=== PATIENT | female | born 1970 | race African-American/Black ===

== ENCOUNTER → 2017-05-21 | Outpatient (CLI) | payer OTHER ==
[2017-05-21 16:26] LABS: HGB 13.2 gm/dL (11.4-16.0); MCH 27.4 pg (25.0-35.0); MCHC 30.8 g/dL (31.0-37.0); MCV 89.1 fL (80.0-100.0); Mean Platelet Volume 7.8; Platelet Count 208 k/uL (150-450); RBC 4.82 m/uL (3.80-5.40); RDW 14.6 % (11.5-15.5); WBC 4.9 k/uL (3.8-10.6)
[2017-05-21 16:35] LABS: INR 1.1 (<1.2); Partial Thromboplastin Time 24.2 sec (22.0-30.0); Prothrombin Time 10.4 sec (9.0-12.0)
[2017-05-21 16:52] LABS: ALT 36 U/L (9-52); AST 24 U/L (14-36); Albumin 4.4 g/dL (3.5-5.0); Alkaline Phosphatase 99 U/L (38-126); Anion Gap 11 mmol/L; Blood Urea Nitrogen 16 mg/dL (7-17); Calcium 9.7 mg/dL (8.4-10.2); Carbon Dioxide 28 mmol/L (22-30); Chloride 104 mmol/L (98-107); Cholesterol 251 mg/dL (<200); Glucose 85 mg/dL (74-99); HDL Cholesterol 41 mg/dL (40-60); LDL Cholesterol,Calculated 183 mg/dL (0-99); Magnesium 1.9 mg/dL (1.6-2.3); Potassium 4.4 mmol/L (3.5-5.1); Sodium 143 mmol/L (137-145); Total Bilirubin 0.3 mg/dL (0.2-1.3); Total Protein 8.1 g/dL (6.3-8.2); Triglycerides 135 mg/dL (<150)
[2017-05-22 01:07] LABS: Iron Saturation 20.61 (12.00-45.00)
[2017-05-22 01:33] LABS: Folate, Serum 16.1 ng/mL
[2017-05-22 03:41] LABS: Hemoglobin A1C 7.2 % (4.0-6.0)
[2017-05-22 05:14] LABS: Parathyroid Hormone Intact 64.2 pg/mL (14.0-72.0)
[2017-05-22 15:04] LABS: Vitamin A 36 ug/dL (38-106)
[2017-05-22 15:26] LABS: Zinc, Serum 100 ug/dL (60-130)
[2017-05-23 03:26] LABS: Vitamin B1 47 ug/L (38-122)
[2017-05-24 11:58] LABS: Selenium 140 mcg/L (63-160)
== END | disposition home or self-care (01) ==
LOC: LABWHC1 15:39
PROVIDERS: ATTEND Surgery Plastic and Reconstructive Surgery
DX: E66.01 Morbid (severe) obesity due to excess calories (principal); E21.1 Secondary hyperparathyroidism, not elsewhere classified; D50.8 Other iron deficiency anemias; K90.89 Other intestinal malabsorption; E55.9 Vitamin D deficiency, unspecified; K90.9 Intestinal malabsorption, unspecified; T56.894A Toxic effect of other metals, undetermined, initial encounter; K74.1 Hepatic sclerosis
CPT/HCPCS: 36415; 80053; 80061; 82306; 82525; 82607; 82728; 82746; 83036; 83540; 83550; 83735; 83970; 84100; 84134; 84255; 84425; 84443; 84590; 84630; 85027; 85610; 85730

== ENCOUNTER → 2020-11-25 | Outpatient (CLI) | payer OTHER ==
[2020-11-26 01:23] LABS: HCT 41.6 % (37.2-46.3); HGB 12.9 g/dL (12.0-15.0); MCH 26.5 pg (27.0-32.0); MCV 85.4 fL (80.0-97.0); Platelet Count 231 X 10*3/uL (140-440); RBC 4.87 X 10*6/uL (4.10-5.20); RDW 14.4 % (11.5-14.5); WBC 5.42 X 10*3/uL (4.50-10.00)
[2020-11-26 03:38] LABS: Partial Thromboplastin Time 25.8 sec (23.5-31.0); Prothrombin Time 10.9 sec (9.9-11.9)
[2020-11-26 04:38] LABS: Hemoglobin A1C 7.6 % (4.0-6.0)
[2020-11-26 06:33] LABS: Ferritin 90.8 ng/mL (10.0-291.0)
[2020-11-26 15:02] LABS: Zinc, Serum 97 ug/dL (60-130)
[2020-11-26 15:20] LABS: % Iron Saturation 17.03 (12.00-45.00); African American GFR (CKD) 75.5 (60.0-200.0); Albumin/Globulin Ratio 1.47 (1.60-3.17); Anion Gap 13.6 mmol/L (4.00-12.00); Calcium 9.6 mg/dL (8.7-10.3); Carbon Dioxide 22.4 mmol/L (21.6-31.8); Chol/HDL Ratio 4.35; Globulin 3.4 g/dL (1.6-3.3); Magnesium 1.8 mg/dL (1.5-2.4); Non-African American GFR(CKD) 65.2 (60.0-200.0); Phosphorus 4.4 mg/dL (2.4-5.1); Total Bilirubin 0.3 mg/dL (0.3-1.2); Total Protein 8.4 g/dL (6.2-8.2)
[2020-11-27 10:52] LABS: Anabasine Urine <2.0 ng/mL (<2.0)
== END | disposition home or self-care (01) ==
LOC: LABPAT 16:25
PROVIDERS: ATTEND Surgery Plastic and Reconstructive Surgery
DX: N19 Unspecified kidney failure (principal); E89.1 Postprocedural hypoinsulinemia; E55.9 Vitamin D deficiency, unspecified; E66.01 Morbid (severe) obesity due to excess calories; D50.8 Other iron deficiency anemias; K90.89 Other intestinal malabsorption; K74.1 Hepatic sclerosis; K50.90 Crohn's disease, unspecified, without complications
CPT/HCPCS: 84255; 84134; 84425; 80061; 80053; 82607; 82728; 82525; 82746; 83540; 83550; 83735; 84100; 84443; 84590; 84630; 85027; 85610; 85730; 82306; 83970; 83036; 80307; 93005; 36415; G0480; G0482; 80323

== ENCOUNTER → 2021-05-26 | Outpatient (CLI) | payer OTHER | END | disposition home or self-care (01) | LOC: LABPAT 16:23 | PROVIDERS: ATTEND Surgery Plastic and Reconstructive Surgery | DX: Z20.822 Contact with and (suspected) exposure to COVID-19 (principal) ==

== ENCOUNTER → 2021-05-30 | Day surgery (SDC) | payer OTHER ==
[2021-05-25 13:34] VITALS: BMI 40.4
[~2021-05-30] MED LIST: GLYCOPYRROLATE 0.2 MG/ML 2 ML VIAL ONE; LACTATED RINGERS 1,000 ML IV SCH; LIDOCAINE 1% (10MG/ML) FOR IV START INTRADERMA PRN; LIDOCAINE 1% INJ 10MG/ML (20 ML MDV) ONE; PROPOFOL 10 MG/ML 20 ML VIAL IV ONE
--- NOTE | 2021-05-30 07:44 | P.GSHP ---
History of Present Illness H&P Date: 05/30/21 CHIEF COMPLAINT: GERD HISTORY OF PRESENT ILLNESS: The patient is a 51-year-old female who presents reports gastroesophageal reflux disease. Upper endoscopy was offered for further evaluation and management. PAST MEDICAL HISTORY: Please see list. PAST SURGICAL HISTORY: Please see list. MEDICATIONS: Please see list. ALLERGIES: Please see list. SOCIAL HISTORY: No illicit drug use FAMILY HISTORY: No reports of Crohn disease or ulcerative colitis. REVIEW OF ORGAN SYSTEMS: CONSTITUTIONAL: No reports of fevers or chills. GI: Denies any blood in stools or constipation. PHYSICAL EXAM: VITAL SIGNS: Stable GENERAL: Well-developed and pleasant in no acute distress. HEENT: No scleral icterus. Extraocular movements grossly intact. Moist buccal mucosa. NECK: Supple without lymphadenopathy. CHEST: Unlabored respirations. Equal bilateral excursions. CARDIOVASCULAR: Regular rate and rhythm. Distal 2+ pulses. ABDOMEN: Soft, nondistended. MUSCULOSKELETAL: No clubbing, cyanosis, or edema. ASSESSMENT: 1. Gastroesophageal reflux disease PLAN: 1. Recommend proceeding with an upper endoscopy Past Medical History Past Medical History: Diabetes Mellitus, GERD/Reflux, Sleep Apnea/CPAP/BIPAP, Vascular Disorder Additional Past Medical History / Comment(s): CPAP used at home, frequent leg swelling, neuropathy History of Any Multi-Drug Resistant Organisms: None Reported Past Surgical History: Orthopedic Surgery Additional Past Surgical History / Comment(s): thumb surg. Past Anesthesia/Blood Transfusion Reactions: No Reported Reaction Additional Past Anesthesia/Blood Transfusion Reaction / Comment(s): No previous surgical history. Smoking Status: Never smoker, Second hand smoke exposure Medications and Allergies Home Medications Medication Instructions Recorded Confirmed Type Aspirin [Adult Low Dose Aspirin EC] 81 mg PO DAILY 11/17/20 05/25/21 History Atorvastatin [Lipitor] 40 mg PO DAILY 11/17/20 05/25/21 History Cholecalciferol [Vitamin D3 (25 50 mcg PO DAILY 11/17/20 05/25/21 History Mcg = 1000 Iu)] Dulaglutide [Trulicity] 3 mg SQ FR 11/17/20 05/25/21 History Insulin Glargine [Lantus] 10 unit SQ HS 11/17/20 05/25/21 History Spironolactone [Aldactone] 100 mg PO DAILY 11/17/20 05/25/21 History metFORMIN HCL [Glucophage] 1,000 mg PO BID 11/17/20 05/25/21 History Gabapentin [Neurontin] 300 mg PO BID 05/25/21 05/25/21 History Allergies Allergy/AdvReac Type Severity Reaction Status Date / Time hydrochlorothiazide Allergy Itching Verified 05/25/21 12:51
[2021-05-30 08:17] VITALS: TEMP 97.2
[2021-05-30 08:21] LABS: Glucose,Whole Blood 114 mg/dL (75-99)
--- NOTE | 2021-05-30 08:48 | P.PCN ---
Date of Procedure: 05/30/21 Description of Procedure: PREOPERATIVE DIAGNOSIS: Gastroesophageal reflux disease. Morbid obesity. POSTOPERATIVE DIAGNOSIS: Morbid obesity. Gastritis. Gastroesophageal reflux disease. Gastroparesis OPERATION: Esophagogastroduodenoscopy with biopsies along antrum. SURGEON: Sydney Comer MD ANESTHESIA: MAC. INDICATIONS: The patient is a 51-year-old female who presents with a history of reflux disease. Benefits and risks of the procedure were described. Informed consent was obtained. DESCRIPTION: The patient was brought into the endoscopy suite and laid in the left lateral decubitus position. An Olympus gastroscope was passed along the posterior oropharynx down to the distal esophagus where the squamocolumnar junction was encountered at 38 cm from the incisors. The stomach was entered and no bile reflux was found. Additional findings are listed below. Biopsies with cold forceps were obtained of the antrum. The first through third portion of the duodenum was examined. Retroflexion of the scope confirmed Hill grade 2 lower esophageal valve. The squamocolumnar junction demonstrated LA grade A erosive esophagitis. The stomach was desufflated. The patient tolerated the procedure well. FINDINGS: Squamocolumnar junction 38 cm from the incisors. Diaphragmatic hiatus at 38 cm. Hill grade 2 lower esophageal valve. LA grade A erosive esophagitis. No active duodenitis. Chronic gastritis Moderate food along stomach for gastroparesis RECOMMENDATIONS: 1. Trial of Reglan 10 mg 3 times daily for gastroparesis Plan - Discharge Summary Discharge Rx Participant: No New Discharge Prescriptions: New Metoclopramide [Reglan] 10 mg PO ACHS #30 tab Continue metFORMIN HCL [Glucophage] 1,000 mg PO BID Aspirin [Adult Low Dose Aspirin EC] 81 mg PO DAILY Cholecalciferol [Vitamin D3 (25 Mcg = 1000 Iu)] 50 mcg PO DAILY Gabapentin [Neurontin] 300 mg PO BID Insulin Glargine [Lantus Vial] 10 unit SQ HS Dulaglutide [Trulicity] 3 mg SQ FR Spironolactone [Aldactone] 100 mg PO DAILY Atorvastatin [Lipitor] 40 mg PO DAILY Discharge Medication List Aspirin [Adult Low Dose Aspirin EC] 81 mg PO DAILY 11/17/20 [History] Atorvastatin [Lipitor] 40 mg PO DAILY 11/17/20 [History] Cholecalciferol [Vitamin D3 (25 Mcg = 1000 Iu)] 50 mcg PO DAILY 11/17/20 [History] Dulaglutide [Trulicity] 3 mg SQ FR 11/17/20 [History] Insulin Glargine [Lantus Vial] 10 unit SQ HS 11/17/20 [History] Spironolactone [Aldactone] 100 mg PO DAILY 11/17/20 [History] metFORMIN HCL [Glucophage] 1,000 mg PO BID 11/17/20 [History] Gabapentin [Neurontin] 300 mg PO BID 05/25/21 [History] Metoclopramide [Reglan] 10 mg PO ACHS #30 tab 05/30/21 [Rx] [facility]Ref[facility] [place] [place] [facility] [place] [facility] Patient Instructions/Handouts: *[facility] - (Anesthesia) Endoscopy Discharge Instructions, Gastroparesis (DC) Discharge Disposition: HOME SELF-CARE
[2021-05-30 08:53] LABS: Glucose,Whole Blood 112 mg/dL (75-99)
[2021-05-30 08:53] LABS: Glucose,Whole Blood 107 mg/dL (75-99)
[2021-05-30 09:00] VITALS: BP 106/73; PULSE 100; RESP 16
== END | disposition home or self-care (01) ==
LOC: ORWHC2ENDO 07:33
PROVIDERS: ATTEND Surgery Plastic and Reconstructive Surgery
DX: K29.50 Unspecified chronic gastritis without bleeding (principal); K22.10 Ulcer of esophagus without bleeding; K21.9 Gastro-esophageal reflux disease without esophagitis; G47.33 Obstructive sleep apnea (adult) (pediatric); E78.5 Hyperlipidemia, unspecified; Z77.22 Contact with and (suspected) exposure to environmental tobacco smoke (acute) (chronic); E11.40 Type 2 diabetes mellitus with diabetic neuropathy, unspecified; Z97.2 Presence of dental prosthetic device (complete) (partial); E66.01 Morbid (severe) obesity due to excess calories; Z68.41 Body mass index [BMI] 40.0-44.9, adult; Z79.899 Other long term (current) drug therapy; Z79.84 Long term (current) use of oral hypoglycemic drugs; Z79.82 Long term (current) use of aspirin; Z79.4 Long term (current) use of insulin; M79.89 Other specified soft tissue disorders; Z88.8 Allergy status to other drugs, medicaments and biological substances
CPT/HCPCS: 88305; 88342; 43239; J2001; J2704

== ENCOUNTER → 2021-06-22 | Outpatient (CLI) | payer OTHER ==
[2021-06-22 14:22] VITALS: BP 104/67; PULSE 88; RESP 16; TEMP 97.2; BMI 42.2
--- NOTE | 2021-06-22 14:41 | P.BASOAP ---
Subjective Progress Note Date: 06/22/21 DATE OF SERVICE: 06/22/2021 CHIEF COMPLAINT: Morbid obesity HISTORY OF PRESENT ILLNESS: Victoria Hanna is a 50-year-old female who comes with lifelong morbid obesity. As a result of her morbid obesity, she has developed insulin dependent diabetes, sleep apnea, and hypertensive heart disease. She in medical supervised weight loss. She finished 6 months of her supervised weight loss. She was seeing Dr. Marshall to control her diabetes. She is looking into the sleeve. Currently, her psychology assessment is pending. 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 At height of 5 feet 0 inches, her ideal body weight is 127 pounds. She was 235 pounds. Her body mass index is 46.0 Today she comes in 216 pounds from 235 pounds, 8 months ago. She has lost 20 pounds in 8 months. She is 89 pounds overweight. PAST MEDICAL HISTORY: 1. Morbid obesity due to excess calories 2. Body mass index of 46.0, initial 3. Diabetes type 2, insulin dependent 4. Hyperlipidemia 5. Hypertensive heart disease 6. Sleep apnea. PAST SURGICAL HISTORY: 1. No abdominal surgery HOME MEDICATIONS: Home Medications Medication Instructions Recorded Confirmed Aspirin [Adult Low Dose Aspirin EC] 81 mg PO DAILY 11/17/20 06/23/21 Atorvastatin [Lipitor] 40 mg PO DAILY 11/17/20 06/23/21 Cholecalciferol [Vitamin D3 (25 50 mcg PO DAILY 11/17/20 06/23/21 Mcg = 1000 Iu)] Dulaglutide [Trulicity] 3 mg SQ FR 11/17/20 06/23/21 Insulin Glargine [Lantus Vial] 10 unit SQ HS 11/17/20 06/23/21 Spironolactone [Aldactone] 100 mg PO DAILY 11/17/20 06/23/21 metFORMIN HCL [Glucophage] 1,000 mg PO BID 11/17/20 06/23/21 Gabapentin [Neurontin] 300 mg PO BID 05/25/21 06/23/21 Previous Rx's Medication Instructions Recorded Metoclopramide [Reglan] 10 mg PO ACHS #30 tab 05/30/21 Amoxicillin 1,000 mg PO Q12HR #56 cap 07/13/21 Clarithromycin [Biaxin] 500 mg PO Q12HR #28 tablet 07/13/21 Omeprazole [PriLOSEC] 40 mg PO DAILY #90 cap 07/13/21 ALLERGIES: Allergies Allergy/AdvReac Type Severity Reaction Status Date / Time hydrochlorothiazide Allergy Itching Verified 05/30/21 07:56 SOCIAL HISTORY: No past tobacco use. FAMILY HISTORY: No family history of ulcerative colitis disease or Crohn's disease. Family history of morbid obesity. No lupus in the family. No reports of stomach or esophageal cancer. REVIEW OF ORGAN SYSTEMS: CONSTITUTIONAL: At height of 5 feet 0 inches, her ideal body weight is 127 pounds. She comes in 235 pounds. Her body mass index is 46.0 She is 108 pounds overweight. HEENT: Denies any active troubles with vision or hearing. ENDOCRINE: Has diabetes. No hypothyroidism. Takes insulin. CARDIOVASCULAR: Past reports of palpitations or heart attacks or chest pain. Has hypertensive heart disease. Has hyperlipidemia RESPIRATORY: Has daytime somnolence. Has asthma. Has chronic obstructive pulmonary disease. Has sleep apnea. GASTROINTESTINAL: Denies any bright red blood per rectum. No diarrhea. No constipation. Has gastroesophageal reflux disease. GENITOURINARY: Denies bladder urgency. No recent blood in urine MUSCULOSKELETAL: Has lower back pain and joint pain. Has osteoarthritis of the knees. NEURO: No headaches. No seizure disorders. PSYCH: Has depression. No suicidal ideation. RHEUMATOLOGIC: No lupus. No rheumatoid arthritis. HEMATOLOGIC: Denies any abnormal bleeding or bruising. SKIN: No rash. No skin cancer. PHYSICAL EXAM: VITAL SIGNS: Height 5 foot 0 inches, weight 216 pounds. BMI 42.2 Vital Signs Temp 97.2 F L 06/22/21 14:00 Pulse 88 06/22/21 14:00 Resp 16 06/22/21 14:00 BP 104/67 06/22/21 14:00 Pulse Ox GENERAL: Well-developed in no acute distress. HEENT: No scleral icterus. Extraocular movements grossly intact. Hears conversational speech. No nasal drainage. NECK: Supple without lymphadenopathy. CHEST: Nonlabored respirations with equal bilateral excursions. CARDIOVASCULAR: Regular rate and regular rhythm. Distal 2+ pulses. ABDOMEN: Obese, soft, nontender, nondistended. MUSCULOSKELETAL: No clubbing, cyanosis. NEURO: No focal or lateralizing signs. Cranial nerves 2 through 12 grossly within normal limits. PSYCH: Appropriate affect. Alert and oriented to person, place and time. SKIN: Good skin turgor. Well perfused. LABS: Reviewed. Hgb A1c 7.6% elevated. HDL low. EGD FINDINGS: Squamocolumnar junction 38 cm from the incisors. Diaphragmatic hiatus at 38 cm. Hill grade 2 lower esophageal valve. LA grade A erosive esophagitis. No active duodenitis. Chronic gastritis Moderate food along stomach for gastroparesis EKG: Normal sinus rhythm Final Pathologic Diagnosis STOMACH, ANTRUM, BIOPSY: Moderate chronic and active gastritis. Immunostain with appropriate controls positive for Helicobacter organisms. ASSESSMENT: 1. Morbid obesity due to excess calories 2. Body mass index of 46.0, initial to 42.2 3. Diabetes type 2, insulin dependent 4. Hyperlipidemia 5. Hypertensive heart disease 6. Sleep apnea. 7. Gastroparesis 8. H. pylori gastritis PLAN: 1. Treatment for new H. pylori gastristitis prescribed. Will need re-check for clearance of infection. 2. Recommend completion of medical supervised weight loss. 3. She is pending psych assessment per insurance requirements. 4. She is looking into the sleeve without any overt contra-indications to a sleeve. 5. She has gastroparesis which would require prolonged liquid diet pre-op Objective - Vital Signs Vital signs: Vital Signs Temp 97.2 F L 06/22/21 14:00 Pulse 88 06/22/21 14:00 Resp 16 06/22/21 14:00 BP 104/67 06/22/21 14:00 Pulse Ox Intake & Output 06/21/21 06/22/21 06/22/21 18:59 06:59 18:59 Weight 97.976 kg Assessment/Plan Plan: Date: 06/22/21 Initial Weight: 106.793 kg Initial BMI: 45.9 Current Weight: 97.976 kg Current BMI: 42.2 Type of Surgery: Total Volume in Band: Previous Volume: Volume Removed: Volume Added: Band Size:
== END ==
LOC: BARWHC3 13:37
PROVIDERS: ATTEND Surgery Plastic and Reconstructive Surgery
DX: E66.01 Morbid (severe) obesity due to excess calories (principal); E78.5 Hyperlipidemia, unspecified; I11.9 Hypertensive heart disease without heart failure; G47.30 Sleep apnea, unspecified; E11.43 Type 2 diabetes mellitus with diabetic autonomic (poly)neuropathy; K31.84 Gastroparesis; K29.60 Other gastritis without bleeding; Z68.41 Body mass index [BMI] 40.0-44.9, adult; Z79.4 Long term (current) use of insulin; Z79.899 Other long term (current) drug therapy; Z79.84 Long term (current) use of oral hypoglycemic drugs; Z88.8 Allergy status to other drugs, medicaments and biological substances
CPT/HCPCS: 99211

== ENCOUNTER → 2021-06-27 | Outpatient (CLI) | payer OTHER ==
[2021-06-27 11:30] VITALS: BMI 42.7
== END ==
LOC: BARWHC3 08:46
PROVIDERS: ATTEND Surgery Plastic and Reconstructive Surgery
DX: E66.01 Morbid (severe) obesity due to excess calories (principal); Z71.3 Dietary counseling and surveillance; Z68.41 Body mass index [BMI] 40.0-44.9, adult; Z88.8 Allergy status to other drugs, medicaments and biological substances
CPT/HCPCS: 97804

== ENCOUNTER → 2021-09-22 | Outpatient (CLI) | payer OTHER ==
[2021-09-22 15:07] VITALS: BP 134/72; PULSE 72; TEMP 97.8; BMI 42.7
== END ==
LOC: BARWHC3 14:36
PROVIDERS: ATTEND Surgery Plastic and Reconstructive Surgery
DX: E66.01 Morbid (severe) obesity due to excess calories (principal); Z71.3 Dietary counseling and surveillance; E11.9 Type 2 diabetes mellitus without complications; Z68.41 Body mass index [BMI] 40.0-44.9, adult; Z88.8 Allergy status to other drugs, medicaments and biological substances
CPT/HCPCS: 99211

== ENCOUNTER → 2022-01-04 | Outpatient (CLI) | payer OTHER ==
[2022-01-04 18:09] LABS: African American GFR (CKD) 91.8 (60.0-200.0); Albumin 4.5 g/dL (3.8-4.9); Albumin/Globulin Ratio 1.15 (1.60-3.17); Anion Gap 11.6 mmol/L (10.00-18.00); BUN/Creat Ratio 16.67 Ratio (12.00-20.00); Blood Urea Nitrogen 14.1 mg/dL (9.0-27.0); Calcium 9.8 mg/dL (8.7-10.3); Globulin 3.9 g/dL (1.6-3.3); Non-African American GFR(CKD) 79.2 (60.0-200.0); Potassium 4.3 mmol/L (3.5-5.5); Total Bilirubin 0.3 mg/dL (0.30-1.20); Total Protein 8.3 g/dL (6.2-8.2)
[2022-01-04 18:13] LABS: Basophils # (A) 0.03 X 10*3/uL (0.00-0.10); Basophils % (A) 0.5 %; Eosinophils # (A) 0.14 X 10*3/uL (0.04-0.35); Eosinophils % (A) 2.4 %; HCT 42.2 % (37.2-46.3); HGB 13.7 g/dL (12.0-15.0); Immature Grans, Automated 0.3 %; Lymphocytes # (A) 2.13 X 10*3/uL (0.90-5.00); Lymphocytes % (A) 35.8 %; MCH 27.7 pg (27.0-32.0); MCHC 32.5 g/dL (32.0-37.0); MCV 85.4 fL (80.0-97.0); Mean Platelet Volume 10.9 fL (9.5-12.2); Monocytes # (A) 0.59 X 10*3/uL (0.20-1.00); Monocytes % (A) 9.9 %; NRBC Per 100 WBC 0 /100 WBCS (0.0-0.0); Neutrophils # (A) 3.04 X 10*3/uL (1.80-7.70); Neutrophils % (A) 51.1 %; Platelet Count 252 X 10*3/uL (140-440); RBC 4.94 X 10*6/uL (4.10-5.20); RDW 14.7 % (11.5-14.5); WBC 5.95 X 10*3/uL (4.50-10.00)
== END | disposition home or self-care (01) ==
LOC: LABPAT 14:42
PROVIDERS: ATTEND Surgery Plastic and Reconstructive Surgery
DX: Z01.812 Encounter for preprocedural laboratory examination (principal)
CPT/HCPCS: 36415; 80053; 85025

== ENCOUNTER 2022-01-30 10:25 | Inpatient (IN) | payer OTHER ==
[2022-04-03] MEDS ORDERED: MIDAZOLAM 2 MG/2 ML VIAL IV PRN (06:37)
[2022-04-03] MEDS ORDERED: ONDANSETRON 4 MG/2 ML VIAL IVP ONE (06:37)
[2022-04-03] MEDS ORDERED: DEXAMETHASONE SOD PHOSPHATE 4 MG/ML 1 ML VIAL IV ONE (06:37)
[2022-04-03] MEDS ORDERED: SCOPOLAMINE 1 MG/72 HR PATCH TRANSDERM ONE (06:37)
[2022-04-03] MEDS ORDERED: CHLORHEXIDINE GLUCONATE 15 ML CUP MUCOUS MEM PRN (07:00)
[2022-04-03] MEDS ORDERED: ENOXAPARIN 40 MG/0.4 ML SYRINGE SQ PRN (07:00)
[2022-04-03] MEDS ORDERED: HYDROmorphone 0.5 MG/0.5 ML SYRINGE IVP PRN (07:00)
[2022-04-03] MEDS ORDERED: PANTOPRAZOLE 40 MG/10 ML VIAL IVP PRN (07:00)
[2022-04-03] MEDS: LACTATED RINGERS 1,000 ML IV SCH (13:54)
[2022-04-03 14:18] LABS: Glucose,Whole Blood 124 mg/dL (70-110)
[2022-04-03] MEDS ORDERED: SCOPOLAMINE 1 MG/72 HR PATCH TRANSDERM STA (14:23)
--- NOTE | 2022-04-03 14:25 | P.GSHP ---
History of Present Illness H&P Date: 04/03/22 CHIEF COMPLAINT: Morbid obesity HISTORY OF PRESENT ILLNESS: Victoria Hanna is a 50-year-old female who comes with lifelong morbid obesity. As a result of her morbid obesity, she has developed insulin dependent diabetes, sleep apnea, and hypertensive heart disease. She in medical supervised weight loss. She finished 6 months of her supervised weight loss. she has completed cardiac risk assessment. She presents for sleeve gastrectomy. At height of 5 feet 0 inches, her ideal body weight is 127 pounds. She was 235 pounds. Her body mass index is 46.0 T PAST MEDICAL HISTORY: 1. Morbid obesity due to excess calories 2. Body mass index of 46.0, initial 3. Diabetes type 2, insulin dependent 4. Hyperlipidemia 5. Hypertensive heart disease 6. Sleep apnea. PAST SURGICAL HISTORY: 1. No abdominal surgery HOME MEDICATIONS: Home Medications Medication Instructions Recorded Confirmed Aspirin [Adult Low Dose Aspirin EC] 81 mg PO DAILY 11/17/20 06/23/21 Atorvastatin [Lipitor] 40 mg PO DAILY 11/17/20 06/23/21 Cholecalciferol [Vitamin D3 (25 50 mcg PO DAILY 11/17/20 06/23/21 Mcg = 1000 Iu)] Dulaglutide [Trulicity] 3 mg SQ FR 11/17/20 06/23/21 Insulin Glargine [Lantus Vial] 10 unit SQ HS 11/17/20 06/23/21 Spironolactone [Aldactone] 100 mg PO DAILY 11/17/20 06/23/21 metFORMIN HCL [Glucophage] 1,000 mg PO BID 11/17/20 06/23/21 Gabapentin [Neurontin] 300 mg PO BID 05/25/21 06/23/21 Previous Rx's Medication Instructions Recorded Metoclopramide [Reglan] 10 mg PO ACHS #30 tab 05/30/21 Amoxicillin 1,000 mg PO Q12HR #56 cap 07/13/21 Clarithromycin [Biaxin] 500 mg PO Q12HR #28 tablet 07/13/21 Omeprazole [PriLOSEC] 40 mg PO DAILY #90 cap 07/13/21 ALLERGIES: Allergies Allergy/AdvReac Type Severity Reaction Status Date / Time hydrochlorothiazide Allergy Itching Verified 05/30/21 07:56 SOCIAL HISTORY: No past tobacco use. FAMILY HISTORY: No family history of ulcerative colitis disease or Crohn's disease. Family history of morbid obesity. No lupus in the family. No reports of stomach or esophageal cancer. REVIEW OF ORGAN SYSTEMS: CONSTITUTIONAL: At height of 5 feet 0 inches, her ideal body weight is 127 pounds. She comes in 235 pounds. Her body mass index is 46.0 She is 108 pounds overweight. HEENT: Denies any active troubles with vision or hearing. ENDOCRINE: Has diabetes. No hypothyroidism. Takes insulin. CARDIOVASCULAR: Past reports of palpitations or heart attacks or chest pain. Has hypertensive heart disease. Has hyperlipidemia RESPIRATORY: Has daytime somnolence. Has asthma. Has chronic obstructive pulmonary disease. Has sleep apnea. GASTROINTESTINAL: Denies any bright red blood per rectum. No diarrhea. No constipation. Has gastroesophageal reflux disease. GENITOURINARY: Denies bladder urgency. No recent blood in urine MUSCULOSKELETAL: Has lower back pain and joint pain. Has osteoarthritis of the knees. NEURO: No headaches. No seizure disorders. PSYCH: Has depression. No suicidal ideation. RHEUMATOLOGIC: No lupus. No rheumatoid arthritis. HEMATOLOGIC: Denies any abnormal bleeding or bruising. SKIN: No rash. No skin cancer. PHYSICAL EXAM: VITAL SIGNS: Height 5 foot 0 inches, weight 216 pounds. BMI 42.2 GENERAL: Well-developed in no acute distress. HEENT: No scleral icterus. Extraocular movements grossly intact. Hears conversational speech. No nasal drainage. NECK: Supple without lymphadenopathy. CHEST: Nonlabored respirations with equal bilateral excursions. CARDIOVASCULAR: Regular rate and regular rhythm. Distal 2+ pulses. ABDOMEN: Obese, soft, nontender, nondistended. MUSCULOSKELETAL: No clubbing, cyanosis. NEURO: No focal or lateralizing signs. Cranial nerves 2 through 12 grossly within normal limits. PSYCH: Appropriate affect. Alert and oriented to person, place and time. SKIN: Good skin turgor. Well perfused. ASSESSMENT: 1. Morbid obesity due to excess calories 2. Body mass index of 46.0, initial to 42.2 3. Diabetes type 2, insulin dependent 4. Hyperlipidemia 5. Hypertensive heart disease 6. Sleep apnea. 7. Gastroparesis 8. H. pylori gastritis PLAN: 1. Bariatric options between a sleeve, band and a Melissa-en-Y gastric bypass were reviewed in detail. The patient elected for a sleeve gastrectomy. Robotic assisted approach described. 2. The [place] [facility] Data was also reviewed with benefits and risks as described. 3. An 8 page second-generation bariatric consent form was reviewed in detail including potential of bleeding, infection, leaks, adequate weight loss, nutritional deficiencies which the patient demonstrated understanding of the risks. 4. A 2 week high-protein low caloric 800 kcal diet described to address hepatomegaly. 5. Preoperative labs including complete metabolic panel and CBC with type and screen recommended. 6. DVT prophylaxis per [place] [facility]. 7. Antibiotic prophylaxis. 8. Inpatient hospitalization anticipated for more than 2 nights. 9. All questions and concerns were addressed with the patient. 10. The patient is at elevated risk for perioperative complications with sleep apnea and hypertensive heart disease. 11. Overall, patient has expressed understanding of bariatric care including postoperative diet and commitment of lifestyle. Patient should benefit from surgical intervention for correction of morbid obesity. 12. He is elevated risk due to pre-existing comorbid conditions Past Medical History Past Medical History: Diabetes Mellitus, GERD/Reflux, Hyperlipidemia, Neurologic Disorder, Pneumonia, Sleep Apnea/CPAP/BIPAP, Vascular Disorder Additional Past Medical History / Comment(s): Hx palpitations. Hx Pneumonia last November. Joint pain in hands. Has CPAP but does not use it. Frequent leg swelling. Neuropathy. History of Any Multi-Drug Resistant Organisms: None Reported Past Surgical History: Orthopedic Surgery Additional Past Surgical History / Comment(s): Thumb surgery. Past Anesthesia/Blood Transfusion Reactions: No Reported Reaction Additional Past Anesthesia/Blood Transfusion Reaction / Comment(s): No previous surgical history. Past Psychological History: No Psychological Hx Reported Smoking Status: Never smoker, Second hand smoke exposure Past Alcohol Use History: None Reported Past Drug Use History: None Reported - Past Family History Mother Family Medical History: No Reported History Medications and Allergies Home Medications Medication Instructions Recorded Confirmed Type Aspirin [Adult Low Dose Aspirin EC] 81 mg PO DAILY 11/17/20 04/03/22 History Atorvastatin [Lipitor] 40 mg PO DAILY 11/17/20 04/03/22 History Cholecalciferol [Vitamin D3 (25 50 mcg PO DAILY 11/17/20 04/03/22 History Mcg = 1000 Iu)] Insulin Glargine [Lantus Vial] 10 unit SQ HS 11/17/20 04/03/22 History Spironolactone [Aldactone] 100 mg PO DAILY 11/17/20 04/03/22 History metFORMIN HCL [Glucophage] 1,000 mg PO BID 11/17/20 04/03/22 History Gabapentin [Neurontin] 300 mg PO BID PRN 05/25/21 04/03/22 History Magnesium 1 tab PO DAILY 01/04/22 04/03/22 History Zinc Gluconate [Zinc] 1 tab PO DAILY 01/04/22 04/03/22 History Allergies Allergy/AdvReac Type Severity Reaction Status Date / Time hydrochlorothiazide Allergy Itching Verified 04/03/22 13:50 Surgical - Exam Vital Signs Temp Pulse Resp BP Pulse Ox 97.0 F L 85 18 133/63 97 04/03/22 13:49 04/03/22 13:49 04/03/22 13:49 04/03/22 13:49 04/03/22 13:49 Results - Labs Abnormal Lab Results - Last 24 Hours (Table) 04/03/22 Range/Units 14:16 POC Glucose (mg/dL) 124 H (70-110) mg/dL
[2022-04-03] MEDS ORDERED: fentaNYL (PF) 50 MCG/ML 2 ML AMP ONE (16:21)
[2022-04-03] MEDS ORDERED: GLYCOPYRROLATE 0.2 MG/ML 2 ML VIAL ONE (16:21)
[2022-04-03] MEDS ORDERED: NEOSTIGMINE 1 MG/ML 10 ML VIAL ONE (16:21)
[2022-04-03] MEDS ORDERED: PROPOFOL 10 MG/ML 20 ML VIAL IV ONE (16:21)
[2022-04-03] MEDS ORDERED: SUCCINYLCHOLINE CHLORIDE 200 MG/10 ML VIAL IV ONE (16:21)
[2022-04-03] MEDS ORDERED: ROCURONIUM 10 MG/ML (5 ML VIAL) IV ONE (16:21)
[2022-04-03] MEDS ORDERED: LIDOCAINE 2% INJ 20 MG/ML (2 ML VIAL) ONE (16:21)
[2022-04-03] MEDS ORDERED: MIDAZOLAM 2 MG/2 ML VIAL ONE (16:21)
[2022-04-03] MEDS ORDERED: BUPIVACAIN-EPI 0.25%-1:200,000 30 ML VIAL SQ ONE (16:54)
[2022-04-03] MEDS ORDERED: LACTATED RINGERS 1,000 ML IV ONE ×2 (16:55)
[2022-04-03] MEDS ORDERED: NALOXONE 0.4 MG/ML 1 ML VIAL IV PRN (18:12)
[2022-04-03] MEDS ORDERED: diphenhydrAMINE 50 MG/ML 1 ML VIAL IVP PRN (18:13)
[2022-04-03] MEDS ORDERED: DEXTROSE 50% SYRINGE 50 ML IVP PRN ×2 (18:16)
[2022-04-03] MEDS ORDERED: TRIMETHOBENZAMIDE 100 MG/ML 2 ML VIAL IM PRN (18:18)
[2022-04-03] MEDS ORDERED: SODIUM CHLORIDE 0.9% 1,000 ML IV ONE (18:18)
--- NOTE | 2022-04-03 18:21 | P.OP ---
Date of Procedure: 04/03/22 Description of Procedure: SURGEON: CASS CERNA MD PREOPERATIVE DIAGNOSES: 1. Morbid obesity due to excess calories 2. Body mass index of 42.2 POSTOPERATIVE DIAGNOSES: 1. Morbid obesity due to excess calories 2. Body mass index of 42.2 OPERATION: 1. Robotic assisted daVinci Xi laparoscopic sleeve gastrectomy with 40-South African bougie, multiport. 2. Intraoperative esophagogastroduodenoscopy. ANESTHESIA: Gen. local anesthetic ESTIMATED BLOOD LOSS: 5 mL SPECIMENS REMOVED: Sleeve gastrectomy COMPLICATIONS: None. FINDINGS: 1. Negative intraoperative esophagogastrojejunoscopy leak test. 2. No hepatomegaly and no large hiatus hernia. 3. Total of 7 staplers used including 2 - 60 mm green robot estefania and 5 - 60 mm blue robot loads used to create the gastric sleeve. 4. Sleeve gastrectomy, 35 x 4 cm 5. perihepatic adhesions along the left lobe of the liver INDICATIONS: is a 52-year-old female who comes with lifelong morbid obesity. She is looking into the sleeve gastrectomy. She has comorbidities including obstructive sleep apnea, insulin-dependent diabetes type 2, osteoarthritis of the knees and back At height of 5 feet 0 inches, her ideal body weight is 149 pounds. She comes in 316 pounds from 339 pounds, 1 month ago. She lost 23 pounds in 1 month. Her body mass index is down from 57.7 to 51.2. She is 167 pounds overweight. All surgical options for morbid obesity had been described using the [place] bariatric surgery collaborative comorbidity resolution including complication risk score. A second-generation bariatric consent form was described in detail including the possibility of protein malnutrition, leaks, gastric stricture, venous thrombosis, gastroesophageal reflux disease, need for further surgery for which she demonstrated understanding. Benefits and risks of the procedure were described at length. Informed consent was obtained. DESCRIPTION: The patient was brought into the operating room theater. Preoperatively she had received Lovenox subcutaneously for DVT prophylaxis. Additionally she had Peridex oral solution as an oral decontaminant. After general induction, the abdomen was prepped and draped in standard sterile fashion. An Ioban draping was placed along the abdomen. A robotic da Constance Xi system was prepped and primed. At 15 cm from the xiphoid, proposed port sites were marked with indelible marker along the anterior axillary line bilaterally, mid axillary line bilaterally with each ports were marked 10 to 15 cm from each other. The robotic stapler port was marked for the right midclavicular line. A 5 mm 0 degrees laparoscopic trocar entry was performed along the left upper quadrant. The abdomen was insufflated to 15 mmHg pressure was tolerated well. Diagnostic laparoscopy demonstrated no injury to bowel, viscera, or mesentery. No evidence of large hiatus hernia was identified. The liver edge was sharp consistent with 2 week low-carb high-protein diet. A 8 mm port was placed along the left upper abdominal wall after exchanging the 5 mm port. A separate 8 mm port was placed along the left lateral abdominal wall. Please note that the ports were placed at least 20 cm away from the target anatomy. Care was taken to check each robotic arms were safely away from collision with the bed or the patient. At the epigastrium, a medium sized Aries liver retractor was placed under direct visualization with the Iron Front Desk Host placed under the right shoulder of the patient. Next, 12-mm robot stapler port was placed along the right upper quadrant. The camera 8-mm port was maintained along the epigastrium. The patient was repositioned in reverse Trendelenburg position at 21-degrees after lowering the bed. The robot was docked along the left side of the patient. Using a grasper for arm 4, a vessel sealer for arm 3, including grasper for arm 1, the robotic system was docked and primed as described. Instruments were interchanged by the college sports assistant for stapler loads. The camera was placed at 30- degrees down. I had sat at the console. The pylorus was identified and 6 cm proximally along the greater curvature of the stomach, the short gastrics were mobilized upwards to the angle of His using a vessel sealer. Hemostasis was excellent during this portion of the procedure. Next, the upper pole of the stomach was adherent to the left valery, which was gently dissected free using atraumatic grasper. I went to the head of the bed and placed 40-South African blunt bougie into the stomach. The bougie was readjusted by the nurse field artillery radar operator. Robotic stapler black load 60 mm 2 followed by green 60 mm x 5 loads were used to create the sleeve. Initial firing was across the antrum of the stomach towards the angle of His. The staple line was linear without corkscrewing. The space from the angularis incisura of the sleeve was approximately 4 cm. I then went to the head of the bed to perform the intraoperative esophagogastroduodenoscopy leak test. The bougie was withdrawn. The upper pole of the stomach was bathed using normal saline solution. The scope was withdrawn with careful inspection along the staple line for which no leaks were found along the entire length. Additionally,the sleeve was completely hemostatic without any encroachment along the angularis incisura. Its topology was a soft "J". No stricture was encountered upon placement of the scope. The GI tract was desufflated. The patient tolerated this portion of the procedure well. The scope was completely withdrawn. The robot was undocked. I then rescrubbed into case, whereby the irrigation fluid was aspirated from the abdominal cavity. Tisseel fibrin sealant was placed along the entire staple length. Once dried the Aries liver retractor was removed. Attention was now brought to removal of the specimen. The distal end of the sleeve gastrectomy specimen was brought out through the 12 mm port at the left upper quadrant. The specimen was gently removed en total. No contamination had occurred during this process. All instruments and pneumoperitoneum including irrigation fluid was removed from the abdominal cavity. The 12 mm port site was closed using 0-Vicryl and Luther Campa and irrigated with diluted hydrogen peroxide. The final incisions were closed using subcuticular interrupted suture of 4-0 Monocryl. Exofin was applied to the skin once the skin had been cleansed. OptiFoam dressing was placed along the stomach extraction site. The sleeve specimen was measured and checked also for leaks which none were found. At the end of the procedure, needle, sponge, and instrument count was verified correct by the medical or surgical instrument maker. The patient was taken to the postanesthesia care unit in stable condition. She had tolerated the procedure well. Intraoperative films and findings were reviewed with the patient's family.
[2022-04-03 18:38] LABS: Glucose,Whole Blood 188 mg/dL (70-110)
[2022-04-03] MEDS: METOCLOPRAMIDE 5 MG/ML 2 ML VIAL IVP SCH (19:56)
[2022-04-03] MEDS: HYDROmorphone 1 MG/ML 1 ML SYRINGE IVP PRN (20:10)
[2022-04-03 20:48] LABS: Glucose,Whole Blood 174 mg/dL (70-110)
[2022-04-03] MEDS: PANTOPRAZOLE 40 MG/10 ML VIAL IV SCH (21:21)
[2022-04-03] MEDS: 0.9% NACL WITH KCL 20 MEQ/L 1,000 ML IV SCH (21:21)
[2022-04-03] MEDS: ALBUTEROL NEBULIZED 2.5 MG/3 ML INHALATION SCH (21:25)
[2022-04-04] MEDS: METOCLOPRAMIDE 5 MG/ML 2 ML VIAL IVP SCH ×5 (00:17→23:21)
[2022-04-04] MEDS: ACETAMINOPHEN IV (For NPO) 1,000 MG in EMPTY BAG 1 BAG IVPB SCH ×4 (00:17→17:05)
[2022-04-04] MEDS: ONDANSETRON 4 MG/2 ML VIAL IVP SCH ×5 (00:17→23:21)
[2022-04-04] MEDS: INSULIN ASPART (NovoLOG) 100 UNIT/ML VIAL SQ SCH ×5 (00:34→23:21)
[2022-04-04 00:35] LABS: Glucose,Whole Blood 141 mg/dL (70-110)
[2022-04-04] MEDS: HYOSCYAMINE ORAL DROPS 1.875 MG/15 ML BOTTLE PO SCH ×5 (00:35→23:20)
[2022-04-04] MEDS: SIMETHICONE 40 MG/0.6 ML DROPS 2,000 MG/30 ML BOTTLE PO SCH ×5 (00:35→23:20)
[2022-04-04] MEDS: HYDROmorphone 1 MG/ML 1 ML SYRINGE IVP PRN ×3 (01:45→20:28)
[2022-04-04] MEDS: 0.9% NACL WITH KCL 20 MEQ/L 1,000 ML IV SCH ×3 (03:00→17:14)
[2022-04-04 06:20] LABS: Glucose,Whole Blood 118 mg/dL (70-110)
[2022-04-04] MEDS: ALBUTEROL NEBULIZED 2.5 MG/3 ML INHALATION SCH ×4 (07:33→21:43)
[2022-04-04] MEDS: LACTATED RINGERS 1,000 ML IV SCH (08:34)
[2022-04-04] MEDS: SPIRONOLACTONE 25 MG TAB PO SCH (08:38)
[2022-04-04] MEDS: ENOXAPARIN 40 MG/0.4 ML SYRINGE SQ SCH (08:38)
[2022-04-04] MEDS: PANTOPRAZOLE 40 MG/10 ML VIAL IV SCH ×2 (08:38→20:28)
[2022-04-04 09:07] LABS: Basophils # (A) 0.02 X 10*3/uL (0.00-0.10); Basophils % (A) 0.2 %; Eosinophils # (A) 0 X 10*3/uL (0.04-0.35); Eosinophils % (A) 0 %; HCT 37.9 % (37.2-46.3); HGB 11.7 g/dL (12.0-15.0); Immature Grans, Automated 0.3 %; Lymphocytes # (A) 1.16 X 10*3/uL (0.90-5.00); Lymphocytes % (A) 12.7 %; MCH 27.7 pg (27.0-32.0); MCHC 30.9 g/dL (32.0-37.0); MCV 89.8 fL (80.0-97.0); Mean Platelet Volume 11.2 fL (9.5-12.2); Monocytes # (A) 0.84 X 10*3/uL (0.20-1.00); Monocytes % (A) 9.2 %; NRBC Per 100 WBC 0 /100 WBCS (0.0-0.0); Neutrophils % (A) 77.6 %; Platelet Count 234 X 10*3/uL (140-440); RBC 4.22 X 10*6/uL (4.10-5.20); RDW 14.3 % (11.5-14.5); WBC 9.15 X 10*3/uL (4.50-10.00)
[2022-04-04 09:25] LABS: African American GFR (CKD) 84.6 (60.0-200.0); Anion Gap 11.8 mmol/L (10.00-18.00); Blood Urea Nitrogen 15.7 mg/dL (9.0-27.0); Calcium 8.5 mg/dL (8.7-10.3); Carbon Dioxide 21.2 mmol/L (20.0-27.5); Potassium 4.6 mmol/L (3.5-5.5)
[2022-04-04 09:31] LABS: Magnesium 1.9 mg/dL (1.5-2.4)
--- NOTE | 2022-04-04 09:33 | FL ---
EXAMINATION TYPE: FL UGI DATE OF EXAM: 04/04/2022 LIMITED UGI: CLINICAL HISTORY: Morbid Obesity, gastric sleeve surgery yesterday. TECHNIQUE: Limited esophagram is performed utilizing 20 oz of Omnipaque 350. A total of 25 seconds o f fluoroscopic time was utilized during procedure and 32 images obtained. COMPARISON: None. FINDINGS: The patient swallowed contrast without difficulty or delay. Esophageal peristalsis and mo tility are within normal limits. There is good flow of contrast along the diaphragmatic hiatus into proximal stomach and subsequent good flow through the proximal anastomosis into gastric sleeve. There is mild delay in flow from distal sleeve and anastomosis into pylorus and duodenal sweep. Patient re philippe asymptomatic. There is no evidence of contrast extravasation to suggest leak. IMPRESSION: No evidence of leak or significant obstruction status post recent gastric sleeve surgery.
[2022-04-04 11:21] LABS: Glucose,Whole Blood 112 mg/dL (70-110)
[2022-04-04 13:22] VITALS: BMI 42.3
--- NOTE | 2022-04-04 15:35 | P.PN ---
Subjective Progress Note Date: 04/04/22 CHIEF COMPLAINT: Morbid obesity HISTORY OF PRESENT ILLNESS: Patient is postop day #1 status post robotic laparoscopic sleeve gastrectomy. Upper GI showed no evidence of leak or obstruction. Patient is only and taking a small amount of her bariatric clear liquids. She denies any flatus. She did have abdominal pain earlier and received a dose of IV Dilaudid midmorning. She reports her urine output has been adequate. She did have vomiting last night. This has shown improvement. Patient is lethargic and not moving very much. Afebrile. WBC is 9.15 Hgb 11.7 platelets 234 7141 potassium 4.6 creatinine 0.9 phosphorous is 5.0 magnesium 1.9 PHYSICAL EXAM: VITAL SIGNS: Reviewed GENERAL: Well-developed in no acute distress. HEENT: No sclera icterus. Extraocular movements grossly intact. Moist buccal mucosa. Head is atraumatic, normocephalic. Hears conversational speech. No nasal drainage. NECK: Supple without lymphadenopathy. CHEST: Non-labored respirations and equal bilateral excursions. CARDIOVASCULAR: Palpable 2+ radial pulses. ABDOMEN: Soft. Nondistended. Abdominal binder in place MUSCULOSKELETAL: No clubbing or cyanosis. NEUROLOGIC: No focal or lateralizing signs. Cranial nerves II through XII grossly intact. PSYCH: Patient is lethargic. Able to be awoken and answer questions. Appropriate affect. Alert and oriented to person, place and time. SKIN: Well perfused. Good skin turgor. ASSESSMENT: 1. Morbid obesity due to excess calories 2. Body mass index of 42.2 PLAN: -Continue bariatric clear liquid diet -Continue IV fluids -Continue antiemetics -Continue pain management -Encourage patient to ambulate -DVT prophylaxis Lovenox and GI prophylaxis Protonix -Anticipate discharge tomorrow Physician Coil Assembler note has been reviewed by physician. Signing provider agrees with the documented findings, assessment, and plan of care. Objective - Vital Signs Vital signs: Vital Signs Temp 98.1 F 04/04/22 14:00 Pulse 71 04/04/22 14:00 Resp 18 04/04/22 14:00 BP 124/72 04/04/22 14:00 Pulse Ox 94 L 04/04/22 14:00 FiO2 Intake & Output 04/03/22 04/04/22 04/04/22 18:59 06:59 18:59 Intake Total 1050 3300 Output Total 5 Balance 1045 3300 Weight 98.4 kg 98.4 kg Intake: IV 1050 250 Intake, IV Titration 2850 Amount 0.9% NaCl with KCl 20 Meq 1650 /l 1,000 ml @ 150 mls/hr IV .Q6H40M TREVA Rx#: [id number] ACETAMINOPHEN IV (For NPO 200 ) 1,000 mg In Empty Bag 1 bag @ 400 mls/hr IVPB Q6HR TREVA Rx#:[id number] Sodium Chloride 0.9% 1, 1000 000 ml @ 999 mls/hr IV . Q1H1M ONE Rx#:[id number] Oral 200 Output: Estimated Blood Loss 5 Other: # Voids 2 # Bowel Movements 0 - Labs CBC & Chem 7: 04/04/22 06:24 04/04/22 06:24 Labs: Abnormal Lab Results - Last 24 Hours (Table) 04/03/22 04/03/22 04/03/22 Range/Units 18:36 19:21 20:47 Hgb (12.0-15.0) g/dL MCHC (32.0-37.0) g/dL Eosinophils # (0.04-0.35) X 10*3/uL POC Glucose (mg/dL) 188 H 174 H (70-110) mg/dL Hemoglobin A1c 8.5 H (0.0-6.0) % Calcium (8.7-10.3) mg/dL 04/04/22 04/04/22 04/04/22 Range/Units 00:33 06:17 06:24 Hgb 11.7 L (12.0-15.0) g/dL MCHC 30.9 L (32.0-37.0) g/dL Eosinophils # 0 L (0.04-0.35) X 10*3/uL POC Glucose (mg/dL) 141 H 118 H (70-110) mg/dL Hemoglobin A1c (0.0-6.0) % Calcium (8.7-10.3) mg/dL 04/04/22 04/04/22 Range/Units 06:24 11:17 Hgb (12.0-15.0) g/dL MCHC (32.0-37.0) g/dL Eosinophils # (0.04-0.35) X 10*3/uL POC Glucose (mg/dL) 112 H (70-110) mg/dL Hemoglobin A1c (0.0-6.0) % Calcium 8.5 L (8.7-10.3) mg/dL
[2022-04-04 16:16] LABS: Glucose,Whole Blood 123 mg/dL (70-110)
[2022-04-04 21:42] LABS: Glucose,Whole Blood 115 mg/dL (70-110)
[2022-04-04 23:18] LABS: Glucose,Whole Blood 101 mg/dL (70-110)
[2022-04-05] MEDS: 0.9% NACL WITH KCL 20 MEQ/L 1,000 ML IV SCH ×2 (01:19→14:34)
[2022-04-05] MEDS: METOCLOPRAMIDE 5 MG/ML 2 ML VIAL IVP SCH ×2 (05:13→11:22)
[2022-04-05] MEDS: HYOSCYAMINE ORAL DROPS 1.875 MG/15 ML BOTTLE PO SCH ×2 (05:13→11:21)
[2022-04-05] MEDS: SIMETHICONE 40 MG/0.6 ML DROPS 2,000 MG/30 ML BOTTLE PO SCH ×2 (05:13→11:22)
[2022-04-05] MEDS: ONDANSETRON 4 MG/2 ML VIAL IVP SCH ×2 (05:14→11:22)
[2022-04-05] MEDS: HYDROmorphone 1 MG/ML 1 ML SYRINGE IVP PRN (05:15)
[2022-04-05 05:36] LABS: Glucose,Whole Blood 116 mg/dL (70-110)
[2022-04-05] MEDS: INSULIN ASPART (NovoLOG) 100 UNIT/ML VIAL SQ SCH ×2 (05:59→11:21)
[2022-04-05] MEDS: LACTATED RINGERS 1,000 ML IV SCH (06:00)
[2022-04-05 07:25] VITALS: BP 132/78; RESP 16; TEMP 98
[2022-04-05] MEDS: SPIRONOLACTONE 25 MG TAB PO SCH (08:20)
[2022-04-05] MEDS: PANTOPRAZOLE 40 MG/10 ML VIAL IV SCH (08:20)
[2022-04-05] MEDS: ENOXAPARIN 40 MG/0.4 ML SYRINGE SQ SCH (08:21)
[2022-04-05] MEDS: ALBUTEROL NEBULIZED 2.5 MG/3 ML INHALATION SCH ×2 (08:37→11:31)
[2022-04-05 08:40] VITALS: PULSE 70
--- NOTE | 2022-04-05 09:25 | P.DS ---
Providers Date of admission: 04/03/22 13:24 Expected date of discharge: 04/05/22 Attending physician: Sydney Comer Primary care physician: [facility] Course: Patient had nausea extending hospitalization. Nausea resolved. Pain control. Medical reconciliation performed. Follow-up At the bariatric center in 48-72 hours. Plan - Discharge Summary Discharge Rx Participant: Yes New Discharge Prescriptions: New Omeprazole [PriLOSEC] 40 mg PO DAILY #30 cap bisacodyL [Dulcolax] 5 mg PO DAILY PRN #10 tab PRN Reason: Constipation Simethicone 40 mg/0.6 ml Drops [Mylicon Drops] 40 mg PO PCHS PRN #30 ml PRN Reason: Gas Ondansetron Odt [Zofran Odt] 4 mg PO Q8HR PRN #9 tab PRN Reason: Nausea Acetaminophen Tab [Tylenol Tab] 1,000 mg PO Q6HR PRN #30 tablet PRN Reason: Pain Continue metFORMIN HCL [Glucophage] 1,000 mg PO BID Aspirin [Adult Low Dose Aspirin EC] 81 mg PO DAILY Gabapentin [Neurontin] 300 mg PO BID PRN PRN Reason: Pain Magnesium 1 tab PO DAILY Discontinued Cholecalciferol [Vitamin D3 (25 Mcg = 1000 Iu)] 50 mcg PO DAILY Insulin Glargine [Lantus Vial] 10 unit SQ HS Spironolactone [Aldactone] 100 mg PO DAILY Atorvastatin [Lipitor] 40 mg PO DAILY Zinc Gluconate [Zinc] 1 tab PO DAILY Discharge Medication List Aspirin [Adult Low Dose Aspirin EC] 81 mg PO DAILY 11/17/20 [History] metFORMIN HCL [Glucophage] 1,000 mg PO BID 11/17/20 [History] Gabapentin [Neurontin] 300 mg PO BID PRN 05/25/21 [History] Magnesium 1 tab PO DAILY 01/04/22 [History] Acetaminophen Tab [Tylenol Tab] 1,000 mg PO Q6HR PRN #30 tablet 04/05/22 [Rx] Omeprazole [PriLOSEC] 40 mg PO DAILY #30 cap 04/05/22 [Rx] Ondansetron Odt [Zofran Odt] 4 mg PO Q8HR PRN #9 tab 04/05/22 [Rx] Simethicone 40 mg/0.6 ml Drops [Mylicon Drops] 40 mg PO PCHS PRN #30 ml 04/05/22 [Rx] bisacodyL [Dulcolax] 5 mg PO DAILY PRN #10 tab 04/05/22 [Rx] Follow up [facility]ment(s[facility] [place] [facility] - 04/07/22 9:00 am Patient Instructions/Handouts: *Surgery [facility] - Scopalamine Patch Instructions, Nutrition after Bariatric Surgery (DC), Laparoscopic Sleeve Gastrectomy ([facility]), *Sur[facility] - Managing Your Pain After Surgery Without Opioids Activity/Diet/Wound Care/Special Instructions: Liquid diet only for 2 weeks until April 15August Shower. No soaking in bath tubs 2 weeks until April 15 Continue to use incentive spirometry to prevent pneumonias. Please continue to ambulate at home to prevent blood clots in legs. Please notify your surgeon if you develop nausea and vomiting including new onset of abdominal pain. No lifting over 4 pounds in 4 weeks, May 04 Drink 64 oz of fluid daily. Start protein shakes on . Notify bariatric center for temp over 101.0, increased pain, drainage from incisions. No straws o r carbonated beverages. Liquid diet only. Sugar content should be less than 6 g to avoid dumping syndrome. Take MOM for constipation. CRUSH, OPEN, OR CUT TABLETS LARGER THAN A SIZE OF A TIC TAC Discharge Disposition: HOME SELF-CARE
== END 2022-04-05 14:50 | disposition home or self-care (01) | DRG 621 ==
LOC: 2ORMAIN 04-03 13:24 → 4SSUR 04-03 18:49
PROVIDERS: ADMIT Surgery Plastic and Reconstructive Surgery; ATTEND Surgery Plastic and Reconstructive Surgery
PROC: 8E0W4CZ Robotic Assisted Procedure of Trunk Region, Percutaneous Endoscopic Approach (ICD-10-PCS; principal; 2022-04-03 14:35)
PROC: 0DB64Z3 Excision of Stomach, Percutaneous Endoscopic Approach, Vertical (ICD-10-PCS; principal; 2022-04-03 14:35)
PROC: 0DJ08ZZ Inspection of Upper Intestinal Tract, Via Natural or Artificial Opening Endoscopic (ICD-10-PCS; principal; 2022-04-03 14:35)
DX: E66.01 Morbid (severe) obesity due to excess calories (principal); Z68.41 Body mass index [BMI] 40.0-44.9, adult; E11.43 Type 2 diabetes mellitus with diabetic autonomic (poly)neuropathy; E11.40 Type 2 diabetes mellitus with diabetic neuropathy, unspecified; I11.9 Hypertensive heart disease without heart failure; K31.84 Gastroparesis; E78.5 Hyperlipidemia, unspecified; B96.81 Helicobacter pylori [H. pylori] as the cause of diseases classified elsewhere; J44.9 Chronic obstructive pulmonary disease, unspecified; Z79.4 Long term (current) use of insulin; G47.33 Obstructive sleep apnea (adult) (pediatric); K21.9 Gastro-esophageal reflux disease without esophagitis; K29.70 Gastritis, unspecified, without bleeding; M17.0 Bilateral primary osteoarthritis of knee; M47.9 Spondylosis, unspecified; Z77.22 Contact with and (suspected) exposure to environmental tobacco smoke (acute) (chronic); Z79.82 Long term (current) use of aspirin; Z79.84 Long term (current) use of oral hypoglycemic drugs; Z79.899 Other long term (current) drug therapy; Z87.01 Personal history of pneumonia (recurrent); Z71.3 Dietary counseling and surveillance; Z88.8 Allergy status to other drugs, medicaments and biological substances
CPT/HCPCS: 74240; 80051; 82310; 82565; 83036; 83735; 84100; 84520; 85025; 86850; 86900; 86901; 88307; 94640; 94760

== ENCOUNTER → 2022-03-22 | Outpatient (CLI) | payer OTHER ==
[2022-03-22 19:09] LABS: Basophils # (A) 0.03 X 10*3/uL (0.00-0.10); Basophils % (A) 0.6 %; Eosinophils # (A) 0.12 X 10*3/uL (0.04-0.35); Eosinophils % (A) 2.4 %; HCT 40.5 % (37.2-46.3); HGB 12.9 g/dL (12.0-15.0); Immature Grans, Automated 0.4 %; Lymphocytes # (A) 1.75 X 10*3/uL (0.90-5.00); Lymphocytes % (A) 34.4 %; MCH 27.3 pg (27.0-32.0); MCHC 31.9 g/dL (32.0-37.0); MCV 85.8 fL (80.0-97.0); Mean Platelet Volume 11.3 fL (9.5-12.2); Monocytes # (A) 0.68 X 10*3/uL (0.20-1.00); Monocytes % (A) 13.4 %; NRBC Per 100 WBC 0 /100 WBCS (0.0-0.0); Neutrophils # (A) 2.49 X 10*3/uL (1.80-7.70); Neutrophils % (A) 48.8 %; Platelet Count 226 X 10*3/uL (140-440); RBC 4.72 X 10*6/uL (4.10-5.20); WBC 5.09 X 10*3/uL (4.50-10.00)
[2022-03-22 19:15] LABS: African American GFR (CKD) 89.5 (60.0-200.0); Albumin 4.2 g/dL (3.8-4.9); Albumin/Globulin Ratio 1.29 (1.60-3.17); Anion Gap 9.7 mmol/L (10.00-18.00); BUN/Creat Ratio 16.76 Ratio (12.00-20.00); Blood Urea Nitrogen 14.4 mg/dL (9.0-27.0); Calcium 9.7 mg/dL (8.7-10.3); Globulin 3.3 g/dL (1.6-3.3); Non-African American GFR(CKD) 77.2 (60.0-200.0); Potassium 4.5 mmol/L (3.5-5.5); Total Bilirubin 0.2 mg/dL (0.30-1.20); Total Protein 7.5 g/dL (6.2-8.2)
== END | disposition home or self-care (01) ==
LOC: LABPAT 14:29
PROVIDERS: ATTEND Surgery Plastic and Reconstructive Surgery
DX: Z01.812 Encounter for preprocedural laboratory examination (principal)
CPT/HCPCS: 36415; 80053; 85025

== ENCOUNTER → 2022-04-12 | Outpatient (CLI) | payer OTHER ==
[2022-04-12 16:06] LABS: African American GFR (CKD) >90 (>60 ml/min/1.73 sqM); Anion Gap 10 mmol/L; Blood Urea Nitrogen 17 mg/dL (7-17); Calcium 8.8 mg/dL (8.4-10.2); Carbon Dioxide 21 mmol/L (22-30); Chloride 110 mmol/L (98-107); Glucose 93 mg/dL (74-99); Non-African American GFR(CKD) >90 (>60 ml/min/1.73 sqM); Potassium 4.4 mmol/L (3.5-5.1); Sodium 141 mmol/L (137-145)
== END | disposition home or self-care (01) ==
LOC: LABWHC1 15:31
PROVIDERS: ATTEND Surgery Plastic and Reconstructive Surgery
DX: R07.9 Chest pain, unspecified (principal)
CPT/HCPCS: 36415; 80048; 84484

== ENCOUNTER → 2022-04-12 | Outpatient (CLI) | payer OTHER ==
[~2022-04-12] MED LIST changes: -GLYCOPYRROLATE 0.2 MG/ML 2 ML VIAL ONE; -LACTATED RINGERS 1,000 ML IV SCH; -LIDOCAINE 1% (10MG/ML) FOR IV START INTRADERMA PRN; -LIDOCAINE 1% INJ 10MG/ML (20 ML MDV) ONE; -PROPOFOL 10 MG/ML 20 ML VIAL IV ONE; +SODIUM CHLORIDE 0.9% 1,000 ML IV SCH
[2022-04-12 13:22] VITALS: BP 114/74; PULSE 87; RESP 16; TEMP 98.2
== END ==
LOC: PROCWHC3 13:06
PROVIDERS: ATTEND Surgery Plastic and Reconstructive Surgery
DX: E86.0 Dehydration (principal); Z88.8 Allergy status to other drugs, medicaments and biological substances
CPT/HCPCS: 96360

== ENCOUNTER → 2022-04-12 | Outpatient (CLI) | payer OTHER ==
[2022-04-12 13:48] VITALS: BP 114/74; PULSE 87; TEMP 98.2
--- NOTE | 2022-04-12 15:09 | P.BASOAP ---
Subjective Progress Note Date: 04/12/22 She reports gas. She has atypical chest pain. She has pain after swallowing. She had for dinner, yogurt and protein shake. She has premier. She is having bowel movements. She has gas. NO straws. Recommend sip cups. She report dehydration. Recommend check labs. Recommend check electrolytes and troponins. Objective - Vital Signs Vital signs: Vital Signs Temp 98.2 F 04/12/22 13:45 Pulse 87 04/12/22 13:45 Resp BP 114/74 04/12/22 13:45 Pulse Ox FiO2 Assessment/Plan Plan: Date: 04/12/22 Initial Weight: 106.793 kg Initial BMI: 45.9 Current Weight: Current BMI: Type of Surgery: Total Volume in Band: Previous Volume: Volume Removed: Volume Added: Band Size:
[2022-04-12 16:02] VITALS: BMI 43.0
== END ==
LOC: BARWHC3 12:56
PROVIDERS: ATTEND Surgery Plastic and Reconstructive Surgery
DX: E66.01 Morbid (severe) obesity due to excess calories (principal); Z68.41 Body mass index [BMI] 40.0-44.9, adult; Z88.8 Allergy status to other drugs, medicaments and biological substances; Z71.3 Dietary counseling and surveillance
CPT/HCPCS: 97802; G0463; 99211

== ENCOUNTER → 2022-05-17 | Outpatient (CLI) | payer OTHER ==
[2022-05-17 15:23] VITALS: BP 111/74; PULSE 74; TEMP 98.1; BMI 39.8
--- NOTE | 2022-05-17 16:20 | P.BASOAP ---
Subjective Progress Note Date: 05/17/22 Patient reports "I feel great." No report of her reflux and indigestion. Average protein intake between 60-65 g daily. No new complaints. Recommend bariatric labs. Follow-up will protocol. Objective - Vital Signs Vital signs: Vital Signs Temp 98.1 F 05/17/22 15:19 Pulse 74 05/17/22 15:19 Resp BP 111/74 05/17/22 15:19 Pulse Ox FiO2 Intake & Output 05/16/22 05/17/22 05/17/22 18:59 06:59 18:59 Weight 92.533 kg Assessment/Plan Plan: Date: 05/17/22 Initial Weight: 106.793 kg Initial BMI: 45.9 Current Weight: 92.533 kg Current BMI: 39.8 Type of Surgery: Total Volume in Band: Previous Volume: Volume Removed: Volume Added: Band Size:
== END ==
LOC: BARWHC3 14:53
PROVIDERS: ATTEND Surgery Plastic and Reconstructive Surgery
DX: E66.01 Morbid (severe) obesity due to excess calories (principal); Z68.39 Body mass index [BMI] 39.0-39.9, adult; Z71.3 Dietary counseling and surveillance; Z88.2 Allergy status to sulfonamides
CPT/HCPCS: 97803; G0463; 99211